=== PATIENT | male | born 1965 | race Caucasian/White ===

== ENCOUNTER 2021-03-02 19:02 | Emergency (ER) | payer OTHER ==
[~2021-03-02] VITALS: Ht 172.7 cm; Wt 131.8 kg
[2021-03-02 19:31] VITALS: BP 147/86
[2021-03-02] MEDS ORDERED: ketorolac trometh. 30mg/ml inj. IM ONE (19:50)
[2021-03-02] MEDS ORDERED: CYCL-1 PO (19:52)
== END 2021-03-02 20:04 | disposition home or self-care (01) ==
LOC: ER 19:03
DX: S39.012A Strain of muscle, fascia and tendon of lower back, initial encounter (principal); Z88.0 Allergy status to penicillin; Z79.899 Other long term (current) drug therapy; X58.XXXA Exposure to other specified factors, initial encounter; Y93.89 Activity, other specified; Y92.89 Other specified places as the place of occurrence of the external cause; Y99.8 Other external cause status
CPT/HCPCS: 96372; 99283; J1885

== ENCOUNTER 2023-04-10 19:02 | Emergency (ER) | payer OTHER ==
[~2023-04-10] VITALS: Ht 172.7 cm; Wt 120.0 kg
[~2023-04-10 19:02] MED LIST: CYCL-1 PO
[2023-04-10 20:00] VITALS: BP 159/93; PULSE 67; RESP 18; TEMP 97.9; O2SAT 97
[2023-04-10] MEDS ORDERED: ketorolac tromethamine 15mg/ml inj. IM ONE (22:00)
[2023-04-10] MEDS ORDERED: ketorolac trometh. 30mg/ml inj. IM ONE (22:05)
[2023-04-10] MEDS ORDERED: CYCL-1 PO (22:07)
[2023-04-10] MEDS ORDERED: NAPR-56 PO (22:07)
== END 2023-04-10 22:25 | disposition home or self-care (01) ==
LOC: ER 19:03
DX: S39.012A Strain of muscle, fascia and tendon of lower back, initial encounter (principal); Z88.0 Allergy status to penicillin; Z79.899 Other long term (current) drug therapy; X50.0XXA Overexertion from strenuous movement or load, initial encounter; Y93.89 Activity, other specified; Y92.89 Other specified places as the place of occurrence of the external cause; Y99.8 Other external cause status
CPT/HCPCS: 96372; 99283; J1885